=== PATIENT | female | born 1970 | race Caucasian/White ===

== ENCOUNTER 2020-04-23 17:19 | Emergency (ER) | payer OTHER, SELFPAY ==
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
[2020-04-23 17:30] VITALS: BP 146/80; PULSE 78; RESP 16; TEMP 37.4; O2SAT 100
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
== END 2020-04-23 18:44 | disposition home or self-care (01) ==
PROVIDERS: Emergency Provider Nurse Practitioner Family
DX: J32.9 Chronic sinusitis, unspecified (principal); H73.891 Other specified disorders of tympanic membrane, right ear
CPT/HCPCS: 70150; 99213; G0463